=== PATIENT | male | born 2000 | race Caucasian/White ===

== ENCOUNTER 2023-11-08 12:05 | Outpatient (AMB) | payer BC, SELFPAY ==
[2023-11-08 12:18] VITALS: BP 110/70; PULSE 70; TEMP 36.5; O2SAT 98; BMI 24.7
--- NOTE | 2023-11-08 12:18 | MHC.OFFWIV ---
Intake Vital Signs 11/08/23 12:18 Height 6 ft Weight 182 lb BMI 24.7 BP 110/70 Blood Pressure Location Lt brachial Position Sitting Pulse 70 Pulse Source Pulse Oximeter Temp 97.7 F Temp Source Temporal Artery Scan Pulse Oximetry (%) 98 Oxygen Delivery Method Room Air Intake Visit Reasons: Lower Back Pain Intake Note: pt is here today for back pain started 1 week ago Patient Tobacco Use Status: Never used Tobacco Allergies No Known Allergies Allergy (Verified 11/08/23 12:41) Medication List - Last Reconciled 11/08/23 by ARMANDO Odonnell cephalexin 500 mg PO TID Do you need a note to return to daycare/school/sports/work: No HPI HPI Comments History of Present Illness Details Patient is a 23-year-old male in today for sick visit. He reports that for the past week he has developed, left lower back discomfort that has gotten progressively worse. Patient denies any trauma to the area. States he does feel some weakness radiating down his left leg. Denies any tingling or numbness. Has not used any medication for relief. Will obtain labs. Will send patient for x-ray. [facility], [facility] Surgical History History of tonsillectomy Family History Mother No problems noted. Father No problems noted. Social History Housing: House Alcohol intake: current Alcohol intake frequency: holidays/special occasions only Patient Tobacco Use Status: Never used Tobacco Second Hand Smoke Exposure: Yes Substance Use Type: Marijuana service: No Current occupational status: employed Review of Systems Const All systems reviewed & are unremarkable except as noted in HPI and below Denies chills and Denies fever(s) Physical Exam Vital Signs: Last Vital Signs Temp 97.7 F 11/08/23 12:18 Pulse 70 11/08/23 12:18 BP 110/70 11/08/23 12:18 Pulse Ox 98 11/08/23 12:18 Oxygen Delivery Method Room Air 11/08/23 12:18 BMI result Body Mass Index 24.7 Vital signs reviewed stable. Const Other: Appearance: Alert.? Oriented X3.? No acute distress.? CVS: Normal heart rate and rhythm.? Pulses normal.? Respiratory: No respiratory distress.? Breath sounds normal.? Skin: Skin warm and dry.? Normal skin color.? Normal skin turgor.? Extremities: No lower extremity edema.? No calf ttp. 5/5 strength to bilateral upper and lower extremities Back: No midline tenderness, no C-spine tenderness, Limited range of motion to rotation, no CVA tenderness bilaterally. Negative straight leg test bilaterally. Neuro: Oriented X 3.? No motor deficit.? No sensory deficit. CN 2-12 intact Assessment & Plan Assessment & Plan (1) SI (sacroiliac) pain: Comment: Will obtain x-ray of SI joint. Will give patient meloxicam and prednisone to be taken as prescribed. Patient does not want muscle relaxers a states does not like all the make him feel Patient has been educated on signs of worsening symptoms when to report to the office or when to present to the ED. Will obtain UA as well Code(s): M53.3 - Sacrococcygeal disorders, not elsewhere classified Plan: Follow-up with PCP Plan Will call patient with lab and imaging results Orders: Orders XR sacroiliac joint 1-2V Today M53.3 - Sacrococcygeal disorders, not elsewhere classified UA CC w/rflx Micro + Cult Today N20.0 - Calculus of kidney Medications: New meloxicam 15 mg PO DAILY 14 tabs 0RF prednisone 40 mg (2 x 20 mg) PO DAILY 10 tabs 0RF Coding Level of Care Code Est Pt Level 3 (35385) Diagnoses SI (sacroiliac) pain M53.3 Time Spent (min) 24
== END 2023-11-08 13:13 | disposition home or self-care (01) ==
PROVIDERS: PCP Internal Medicine; Visit Provider Nurse Practitioner Primary Care
DX: M53.3 Sacrococcygeal disorders, not elsewhere classified (principal)
CPT/HCPCS: 99213

== ENCOUNTER 2023-11-08 12:50 | Outpatient (REF) | payer BC, SELFPAY ==
--- NOTE | ~2023-11-08 | XR_ITS ---
EXAMINATION: XR SACROILIAC JOINTS CLINICAL INFORMATION: Sacrococcygeal disorders not otherwise specified. COMPARISON: None available. TECHNIQUE: 3 views of the sacroiliac joints FINDINGS: The bone mineralization is normal. Bilateral sacroiliac joints are maintained. Limited visualization of the sacrum due to overlying bowel. Small sclerotic focus projecting over the upper medial aspect of the right iliac wing. XR/XR sacroiliac joint 1-2V IMPRESSION: 1. Bilateral sacroiliac joints are maintained. 2. Small sclerotic focus projecting over the upper medial aspect of the right iliac wing.
[2023-11-08 16:20] LABS: Appearance Urine Turbid; Color Urine Yellow; Glucose Urine UA Negative (Negative); Leukocyte Esterase Urine Negative (Negative); Nitrite Urine Negative (Negative); PH 5.5 (5.0-9.0); Specific Gravity - Urine 1.025 (1.005-1.025); Urine Blood Negative (Negative); Urine Ketones Negative (Negative); Urine Protein Negative (Neg-Trace)
== END 2023-11-08 12:51 | disposition home or self-care (01) ==
LOC: HO.HMGCX 12:50
PROVIDERS: Visit Provider Nurse Practitioner Primary Care
DX: N20.0 Calculus of kidney (principal); M53.3 Sacrococcygeal disorders, not elsewhere classified
CPT/HCPCS: 72200; 81003